=== PATIENT | male | born 1990 | race Caucasian/White ===

== ENCOUNTER 2016-12-23 11:45 | Emergency (ER) | payer SELFPAY ==
[2016-12-23 12:52] LABS: UA SPECIFIC GRAVITY 1.025 (1.005-1.035); microscopic required? YES; urine erythrocyte 3+ (NEGATIVE)
[2016-12-23 14:44] LABS: BASOPHIL % 0.7 % (0-2); PLATELET COUNT 277 x10^3mcL (130-400); RED CELL DISTRIBUTION WIDTH 13.8 % (11.5-14.5)
[2016-12-23 14:58] LABS: CALCIUM 8.8 mg/dL (8.5-10.1); CHLORIDE SERUM 104 mmol/L (98-107); GFR1 > 60 mL/min; GLUCOSE SERUM 94 mg/dL (74-106); POTASSIUM SERUM 3.9 mmol/L (3.5-5.1); SODIUM SERUM 140 mmol/L (136-145)
[2016-12-23 15:04] LABS: ALBUMIN 3.6 g/dL (3.4-5.0); ALKALINE PHOSPHATASE 92 U/L (46-116); ALT/SGPT 30 U/L (16-63); AST/SGOT 16 U/L (15-37); BILIRUBIN TOTAL 0.3 mg/dL (0.20-1.00); TOTAL PROTEIN, SERUM 7.2 g/dL (6.4-8.2)
[2016-12-23 16:14] VITALS: BP 140/72
== END 2016-12-23 16:14 | disposition home or self-care (01) ==
LOC: ED 11:45
PROVIDERS: Emergency Medicine
DX: N20.0 Calculus of kidney (principal); N39.0 Urinary tract infection, site not specified; K40.90 Unilateral inguinal hernia, without obstruction or gangrene, not specified as recurrent; I86.1 Scrotal varices; F17.200 Nicotine dependence, unspecified, uncomplicated; Z71.6 Tobacco abuse counseling
CPT/HCPCS: 99406; J0696; J1885; J2405; Q0092

== ENCOUNTER 2016-12-28 07:48 | Emergency (ER) | payer SELFPAY ==
[~2016-12-28] VITALS: Ht 182.9 cm; Wt 92.6 kg
[2016-12-28 08:31] VITALS: BP 167/86
== END 2016-12-28 08:31 | disposition home or self-care (01) ==
LOC: ED 07:48
DX: N20.0 Calculus of kidney (principal); Z79.899 Other long term (current) drug therapy

== ENCOUNTER 2017-02-20 03:04 | Emergency (ER) | payer SELFPAY ==
[2017-02-20 04:54] VITALS: BP 128/66
== END 2017-02-20 04:54 | disposition home or self-care (01) ==
LOC: ED 03:04
DX: N23 Unspecified renal colic (principal); Z87.442 Personal history of urinary calculi
CPT/HCPCS: J1885

== ENCOUNTER 2017-03-24 12:17 | Emergency (ER) | payer SELFPAY ==
[~2017-03-24] VITALS: Ht 182.9 cm; Wt 92.2 kg
[2017-03-24 12:23] VITALS: BP 141/82
== END 2017-03-24 15:10 | disposition home or self-care (01) ==
LOC: ED 12:17
DX: S20.212A Contusion of left front wall of thorax, initial encounter (principal); V87.8XXA Person injured in other specified noncollision transport accidents involving motor vehicle (traffic), initial encounter; Y93.89 Activity, other specified; Y99.8 Other external cause status; Y92.89 Other specified places as the place of occurrence of the external cause

== ENCOUNTER 2017-03-28 12:12 | Emergency (ER) | payer SELFPAY ==
[2017-03-28 12:24] VITALS: BP 156/90
== END 2017-03-28 13:11 | disposition home or self-care (01) ==
LOC: ED 12:12
DX: S20.212A Contusion of left front wall of thorax, initial encounter (principal); Z79.899 Other long term (current) drug therapy; Z79.891 Long term (current) use of opiate analgesic; V29.60XA Unspecified motorcycle rider injured in collision with unspecified motor vehicles in traffic accident, initial encounter; Y93.89 Activity, other specified; Y92.89 Other specified places as the place of occurrence of the external cause; Y99.8 Other external cause status

== ENCOUNTER 2017-05-22 21:45 | Emergency (ER) | payer SELFPAY ==
[~2017-05-22] VITALS: Ht 182.9 cm; Wt 91.2 kg
[2017-05-22 23:22] LABS: PLATELET COUNT 234 x10^3mcL (130-400); RED CELL DISTRIBUTION WIDTH 13.5 % (11.5-14.5)
[2017-05-22 23:23] LABS: BASOPHIL % 2.8 % (0-2)
[2017-05-22 23:32] LABS: CALCIUM 8.8 mg/dL (8.5-10.1); CARBON DIOXIDE 22.8 mmol/L (21-32); CHLORIDE SERUM 100 mmol/L (98-107); CREATININE SERUM 0.9 mg/dL (0.7-1.3); GFR1 > 60 mL/min; GLUCOSE SERUM 114 mg/dL (74-106); POTASSIUM SERUM 3.8 mmol/L (3.5-5.1); SODIUM SERUM 134 mmol/L (136-145)
[2017-05-22 23:41] LABS: ALBUMIN 4.6 g/dL (3.4-5.0); ALKALINE PHOSPHATASE 84 U/L (46-116); ALT/SGPT 73 U/L (16-63); AMYLASE 37 U/L (25-115); AST/SGOT 173 U/L (15-37); BILIRUBIN TOTAL 0.52 mg/dL (0.20-1.00); LIPASE 101 IU/L (73-393); TOTAL PROTEIN, SERUM 7.9 g/dL (6.4-8.2)
[2017-05-23 02:12] VITALS: BP 160/106
== END 2017-05-23 02:12 | disposition home or self-care (01) ==
LOC: ED 21:45
PROVIDERS: Emergency Medicine
DX: K21.9 Gastro-esophageal reflux disease without esophagitis (principal); K29.20 Alcoholic gastritis without bleeding
CPT/HCPCS: 36415; 83880; G0480; Q0162

== ENCOUNTER 2017-08-11 12:06 | Emergency (ER) | payer SELFPAY ==
[~2017-08-11] VITALS: Ht 182.9 cm; Wt 95.4 kg
[2017-08-11 14:21] VITALS: BP 137/73
== END 2017-08-11 14:21 | disposition home or self-care (01) ==
LOC: ED 12:06
DX: R19.7 Diarrhea, unspecified (principal); F17.210 Nicotine dependence, cigarettes, uncomplicated

== ENCOUNTER 2017-08-16 12:46 | Emergency (ER) | payer SELFPAY ==
[~2017-08-16] VITALS: Ht 185.4 cm; Wt 95.9 kg
[2017-08-16 12:49] VITALS: BP 143/78
== END 2017-08-16 13:02 | disposition home or self-care (01) ==
LOC: ED 12:46
DX: R19.7 Diarrhea, unspecified (principal); Z90.49 Acquired absence of other specified parts of digestive tract

== ENCOUNTER 2017-11-08 03:58 | Emergency (ER) | payer MEDICAID ==
[~2017-11-08] VITALS: Ht 182.9 cm; Wt 94.3 kg
[2017-11-08 04:15] VITALS: Ht 182.9 cm; Wt 94.3 kg
[2017-11-08 06:08] VITALS: BP 139/80
[2017-11-08 06:59] LABS: UA SPECIFIC GRAVITY 1.025 (1.005-1.035); microscopic required? YES; urine erythrocyte 1+ (NEGATIVE)
[2017-11-09 14:14] LABS: RAPID PLASMA REAGIN Non Reactive (Non Reactive)
== END 2017-11-08 06:08 | disposition home or self-care (01) ==
LOC: ED 03:58
PROVIDERS: Emergency Medicine
DX: N34.2 Other urethritis (principal); Z90.49 Acquired absence of other specified parts of digestive tract
CPT/HCPCS: 87491; 87591; J0696; Q0162

== ENCOUNTER 2018-09-11 20:43 | Emergency (ER) | payer SELFPAY ==
[~2018-09-11] VITALS: Ht 182.9 cm; Wt 88.9 kg
[2018-09-11 20:49] VITALS: Ht 182.9 cm; Wt 88.9 kg
[2018-09-11 23:40] VITALS: BP 144/88
== END 2018-09-11 23:40 | disposition home or self-care (01) ==
LOC: ED 20:43
DX: N20.0 Calculus of kidney (principal); Z90.89 Acquired absence of other organs; Z98.890 Other specified postprocedural states
CPT/HCPCS: J1885